=== PATIENT | female | born 1950 | race Two or more races ===

== ENCOUNTER 2017-09-16 08:20 | Emergency (ER) | payer OTHER, BC ==
[2017-09-16 08:33] VITALS: BP 137/99; PULSE 84; RESP 18; TEMP 98.6; O2SAT 93
[2017-09-16] MEDS ORDERED: ALBUTEROL INH PREPACK MDI TAKEHOME ONE (08:43)
--- NOTE | 2017-09-16 08:44 | EDPHY ---
H & P Stated Complaint: sore throat, congestion, cough for 5 days, reports fevers Time Seen by Provider: 09/16/17 08:24 HPI/ROS: Chief Complaint: Cough, sore throat, chills HPI: 67-year-old woman with no significant medical history presenting with 5 days of general malaise, body aches, fevers and chills, sore throat, dry nonproductive cough. She has been taking [id number] medications including cold remedies, Tylenol and ibuprofen with some relief. This morning she is feeling a bit better however she has had worsening sore throat for the last 2 days. It hurts to swallow, primarily in the left hand side. She is able to swallow and handle her secretions. No nausea or vomiting. No shortness of breath. No chest pain. No headache or stiff neck. She did get a flu shot this year. ROS: 10 point Review of Systems is negative except as noted in the HPI. PMH: Denies Social History: No smoking, rare alcohol, no recreational drug use Family History: non-contributory Physical Exam: Gen: Awake, Alert, No Distress HEENT: Nose: no rhinorrhea Eyes: PERRLA, EOMI Mouth: Moist mucosa oropharynx is diffusely erythematous with some mild exudate in the left posterior oropharynx. Use midline, no significant edema Neck: Supple, no JVD Chest: nontender, prolonged expiratory phase with mild diffuse expiratory wheeze with forced expiration. No focal rales or rhonchi. Heart: S1, S2 normal, no murmur Abd: Soft, non-tender, no guarding Back: no CVA tenderness, no midline tenderness Ext: no edema, non-tender Skin: no rash Neuro: CN II-XII intact, Sensation grossly intact, Strength 5/5 in bilateral upper and lower extremities - Medical/Surgical History Other PMH: gall bladder, appy - Social History Smoking Status: Never smoked Constitutional: Initial Vital Signs Temperature (C) 37.0 C 09/16/17 08:30 Heart Rate 84 09/16/17 08:30 Respiratory Rate 18 09/16/17 08:30 Blood Pressure 137/99 H 09/16/17 08:30 O2 Sat (%) 93 09/16/17 08:30 O2 Delivery Mode Room Air Allergies/Adverse Reactions: acetaminophen [From Percocet] Allergy (Verified 09/16/17 08:29) amoxicillin Allergy (Verified 09/16/17 08:29) hydrocodone [From Lortab] Allergy (Verified 09/16/17 08:29) oxycodone [From Percocet] Allergy (Verified 09/16/17 08:29) Home Medications: Medication Instructions Recorded NK [No Known Home Meds] 09/16/17 Medical Decision Making ED Course/Re-evaluation: [age] year woman 5 days into an upper respiratory flu-like illness. She is afebrile here. She is not take any medications since last night. She is not hypoxic. She has some mild wheezing but no focal rales or rhonchi. She is feeling improved. Throat is negative. No evidence of acute secondary bacterial infection. Symptoms consistent with viral upper respiratory infection. She is improved after an albuterol inhaler. Will discharge with continuing albuterol as needed. No indication for antibiotics at this time. Refer for outpatient follow-up for any concerns. - Data Points Laboratory Results: 09/16/17 09/16/17 Unknown 08:39 Group A Strep Screen NEGATIVE (NEGATIVE) Group A Strep DNA Pending Medications Given: Discontinued Medications Albuterol Sulfate (Proventil Inh Prepack) 1 mdi TAKELINDSEY EDNOW ONE Stop: 09/16/17 08:44 Last Admin: 09/16/17 08:53 Dose: 1 mdi Departure - Departure Disposition: Home, Routine, Self-Care Clinical Impression: Viral upper respiratory illness, Bronchitis Condition: Good Instructions: Albuterol (By breathing), Upper Respiratory Infection (ED), Acute Bronchitis (ED), Wheezing (ED), Bronchospasm (ED) Additional Instructions: You may use the inhaler with the spacer, 2 puffs every 2-4 hours as needed for cough or wheeze. Referrals: Kahlil Morrison MD [[facility] [place] Primary Care Provider] - As per Instructions
== END 2017-09-16 09:08 | disposition home or self-care (01) ==
LOC: CED 08:20
DX: J06.9 Acute upper respiratory infection, unspecified (principal); J40 Bronchitis, not specified as acute or chronic
CPT/HCPCS: 87880-PO